=== PATIENT | female | born 1980 | race Hispanic/Latino ===

== ENCOUNTER 2018-09-08 13:39 | Inpatient (IN) | payer SELFPAY ==
[2018-09-08] MEDS ORDERED: ONDANSETRON INJ 4 MG/2 ML VIAL IV ONE ×2 (14:02→14:56)
[2018-09-08] MEDS ORDERED: MORPHINE SULFATE INJ 10 MG/ML VIAL IV ONE (14:55)
[2018-09-08] MEDS ORDERED: SODIUM CHLORIDE 0.9% 1000ML 1,000 ML IVS ONE (15:11)
[2018-09-08] MEDS ORDERED: INSULIN, REG.(HUMAN) 250 UNITS in SODIUM CHL 0.9% 250ML (AVIVA) 247.5 ML IVPB ONE ×2 (16:16)
--- NOTE | 2018-09-08 16:17 | CT ---
EXAM DESCRIPTION: Abdomen w/Contrast CLINICAL HISTORY: pain, vomitus COMPARISON: None Available TECHNIQUE: CT of the abdomen and Pelvis was performed with IV contrast. This exam was performed according to our departmental dose-optimization program, which includes automated exposure control, adjustment of the mA and/or kV according to patient size and/or use of iterative reconstruction technique. FINDINGS: The dome of the liver and most superior portion of the spleen are excluded from this exam. With this in mind, no pneumoperitoneum, adenopathy or ascites is seen. No calcified gallstones. Visualized portions of the liver and spleen are unremarkable. The pancreas, adrenals and kidneys are unremarkable. No hiatal hernia or gastric wall thickening. No dilated small bowel loops or mesenteric inflammation. No bladder calcification. Uterus and ovaries are unremarkable for patient's age. Moderate amount stool and gas in the colon without colonic wall thickening or pericolonic inflammation. Normal appendix. The bones are unremarkable. IMPRESSION: Negative exam. No apparent abnormality in the abdomen or pelvis to explain patient's symptoms. Electronically signed by: Narendra Rendon MD 09/08/2018 4:16 PM [facility]
[2018-09-08] MEDS ORDERED: INSULIN, REG.(HUMAN) 100 U/ML VIAL ONE (16:21)
[2018-09-08] MEDS ORDERED: SODIUM CHL 0.9% 250ML (AVIVA) 250 ML IVPB ONE (16:21)
[2018-09-08] MEDS ORDERED: SODIUM CHLORIDE 0.9% 1000ML 1,000 ML IVS PRN (21:26)
[2018-09-08] MEDS ORDERED: POTASSIUM CHLORIDE 20 MEQ TAB PO ONE (21:38)
--- NOTE | 2018-09-08 22:11 | ED.PDOC ---
History of Present Illness - General Chief Complaint: Abdominal Pain Stated Complaint: N/V/D ABD PAIN Time Seen by Provider: 09/08/18 14:01 Source: patient, other - friend Exam Limitations: language barrier - History of Present Illness Initial Comments: Patient presents with N/V and abdominal pain since yesterday at 8 pm. She denies diarrhea. The abdominal pain is infrasternal, sharp, non-radiating, worse with movement, better with rest, denies previous episodes. The patient denies history of diabetes but 3 years ago she was taking "pills" three times per day and she is not sure what for. No other complaints. Timing/Duration: 24 hours Severity: moderate Improving Factors: rest Worsening Factors: movement Associated Symptoms: nausea/vomiting Allergies/Adverse Reactions: Allergies NO KNOWN ALLERGY Allergy (Unverified 09/08/18 13:46) Home Medications: Ambulatory Orders NK 09/08/18 Review of Systems - Review of Systems Constitutional: States: no symptoms reported EENTM: States: no symptoms reported Respiratory: States: no symptoms reported Cardiology: States: no symptoms reported Gastrointestinal/Abdominal: States: see HPI Genitourinary: States: no symptoms reported Musculoskeletal: States: no symptoms reported Skin: States: no symptoms reported Neurological: States: no symptoms reported Endocrine: States: no symptoms reported Hematologic/Lymphatic: States: no symptoms reported Past Medical History (General) - Patient Medical History Hx Asthma: No Hx of COPD: No Hx Cardiac Disorders: No Hx Congestive Heart Failure: No Hx Hypertension: No Hx Diabetes: No Surgical History: no surgical history - Vaccination History Hx Tetanus, Diphtheria Vaccination: No Hx Influenza Vaccination: No Hx Pneumococcal Vaccination: No Immunizations Up to Date: No - Social History Hx Tobacco Use: No Hx Alcohol Use: No Hx Substance Use: No Hx Substance Use Treatment: No Hx Depression: No - Female History Patient is a Female of Child Bearing Age (10 -59 yrs old): Yes Family Medical History - Family History Mother Family History: Unknown Physical Exam - Physical Exam General Appearance: Alert Eye Exam: bilateral normal Ears, Nose, Throat: normal ENT inspection Neck: non-tender, full range of motion, supple Respiratory: lungs clear, normal breath sounds Cardiovascular/Chest: normal peripheral pulses, regular rate, rhythm, no edema Gastrointestinal/Abdominal: normal bowel sounds, other - TTP at the LUQ and infrasternal region. Negative Rovsing's sign. No guarding nor rebound tenderness. Back Exam: normal inspection, no CVA tenderness Extremity: normal range of motion, non-tender, normal inspection Neurologic: amortization clerk II-XII nml as tested, no motor/sensory deficits, alert, normal mood/affect, oriented x 3 Skin Exam: normal color Lymphatic: no adenopathy Progress - Progress Progress: 09/08/18 22:12 Laboratory Tests 09/08/18 09/08/18 09/08/18 14:07 14:07 14:15 WBC 8.3 RBC 4.84 Hgb 14.1 Hct 42.3 MCV 87.4 MCH 29.2 MCHC 33.4 RDW 13.1 Plt Count 224 MPV 8.7 Absolute Neuts (auto) 7.00 H Absolute Lymphs (auto) 1.00 Absolute Monos (auto) 0.20 Absolute Eos (auto) 0.00 Absolute Basos (auto) 0.00 Neutrophils % 85.0 H Lymphocytes % 12.6 L Monocytes % 1.9 L Eosinophils % 0.2 L Basophils % 0.3 pCO2 pO2 HCO3 ABG pH ABG O2 Saturation ABG Base Excess ABG Deoxyhemoglobin Oxyhemoglobin % Carboxyhemoglobin % Methemoglobin % Sat Calc Total Hemoglobin Sodium 137 Potassium 3.8 Chloride 97 L Carbon Dioxide 23 Anion Gap 20.8 H BUN 26 H Creatinine 0.58 L BUN/Creatinine Ratio 44.8 H POC Glucose Random Glucose 311 H Hemoglobin A1c Serum Osmolality 290.4 Calcium 9.8 Total Bilirubin 0.7 AST 21 ALT 19 Alkaline Phosphatase 102 Serum Total Protein 9.2 H Albumin 4.1 Globulin 5.1 H Albumin/Globulin Ratio 0.8 L Lipase 29 Urine Color Urine Appearance Urine pH Ur Specific Elmo Urine Protein Urine Glucose (UA) Urine Ketones Urine Blood Urine Nitrite Urine Bilirubin Urine Urobilinogen Ur Leukocyte Esterase Urine RBC Urine WBC Ur Epithelial Cells Urine Bacteria Urine HCG, Qual Negative 09/08/18 09/08/18 09/08/18 14:16 15:11 16:30 WBC RBC Hgb Hct MCV MCH MCHC RDW Plt Count MPV Absolute Neuts (auto) Absolute Lymphs (auto) Absolute Monos (auto) Absolute Eos (auto) Absolute Basos (auto) Neutrophils % Lymphocytes % Monocytes % Eosinophils % Basophils % pCO2 36 pO2 105 HCO3 20.7 ABG pH 7.380 ABG O2 Saturation 99.3 H ABG Base Excess -3.3 ABG Deoxyhemoglobin 0.7 Oxyhemoglobin % 97.4 Carboxyhemoglobin % 0.3 L Methemoglobin % Sat 1.6 H Calc Total Hemoglobin 12.5 Sodium Potassium Chloride Carbon Dioxide Anion Gap BUN Creatinine BUN/Creatinine Ratio POC Glucose Random Glucose Hemoglobin A1c 12.6 H Serum Osmolality Calcium Total Bilirubin AST ALT Alkaline Phosphatase Serum Total Protein Albumin Globulin Albumin/Globulin Ratio Lipase Urine Color Yellow Urine Appearance Clear Urine pH 5.5 Ur Specific Elmo 1.025 Urine Protein 100 H Urine Glucose (UA) 500 H Urine Ketones >=160 Urine Blood Trace-lysed H Urine Nitrite Negative Urine Bilirubin Negative Urine Urobilinogen 0.2 Ur Leukocyte Esterase Negative Urine RBC 0-1 Urine WBC 0 Ur Epithelial Cells 1-3 Urine Bacteria Rare Urine HCG, Qual 09/08/18 09/08/18 09/08/18 17:33 18:36 18:51 WBC RBC Hgb Hct MCV MCH MCHC RDW Plt Count MPV Absolute Neuts (auto) Absolute Lymphs (auto) Absolute Monos (auto) Absolute Eos (auto) Absolute Basos (auto) Neutrophils % Lymphocytes % Monocytes % Eosinophils % Basophils % pCO2 pO2 HCO3 ABG pH ABG O2 Saturation ABG Base Excess ABG Deoxyhemoglobin Oxyhemoglobin % Carboxyhemoglobin % Methemoglobin % Sat Calc Total Hemoglobin Sodium Potassium Chloride Carbon Dioxide Anion Gap BUN Creatinine BUN/Creatinine Ratio POC Glucose 233 H 256 H Random Glucose Cancelled Hemoglobin A1c Serum Osmolality Calcium Total Bilirubin AST ALT Alkaline Phosphatase Serum Total Protein Albumin Globulin Albumin/Globulin Ratio Lipase Urine Color Urine Appearance Urine pH Ur Specific Elmo Urine Protein Urine Glucose (UA) Urine Ketones Urine Blood Urine Nitrite Urine Bilirubin Urine Urobilinogen Ur Leukocyte Esterase Urine RBC Urine WBC Ur Epithelial Cells Urine Bacteria Urine HCG, Qual 09/08/18 09/08/18 09/08/18 20:20 21:08 21:37 WBC RBC Hgb Hct MCV MCH MCHC RDW Plt Count MPV Absolute Neuts (auto) Absolute Lymphs (auto) Absolute Monos (auto) Absolute Eos (auto) Absolute Basos (auto) Neutrophils % Lymphocytes % Monocytes % Eosinophils % Basophils % pCO2 pO2 HCO3 ABG pH ABG O2 Saturation ABG Base Excess ABG Deoxyhemoglobin Oxyhemoglobin % Carboxyhemoglobin % Methemoglobin % Sat Calc Total Hemoglobin Sodium 139 Potassium 3.1 L Chloride 103 Carbon Dioxide 23 Anion Gap 16.1 BUN 26 H Creatinine 0.49 L BUN/Creatinine Ratio 53.1 H POC Glucose 217 H 189 H Random Glucose 200 H D Hemoglobin A1c Serum Osmolality 287.9 Calcium 9.6 Total Bilirubin AST ALT Alkaline Phosphatase Serum Total Protein Albumin Globulin Albumin/Globulin Ratio Lipase Urine Color Urine Appearance Urine pH Ur Specific Elmo Urine Protein Urine Glucose (UA) Urine Ketones Urine Blood Urine Nitrite Urine Bilirubin Urine Urobilinogen Ur Leukocyte Esterase Urine RBC Urine WBC Ur Epithelial Cells Urine Bacteria Urine HCG, Qual Presenting glucose 311. HbA1c 12.6. CT ab/pelvis negative. Anion gap 20.8. Potassium 3.8. ABG showed pH of 7.38. Patient started on Regular human insulin at 5 units per hour since she was insulin naive. Blood sugar decreased to 233. One hour later it was 256 so the insulin was increased to 10 units per hour. Sugar went to 189 and anion gap corrected to 16.1. Insulin stopped and patient started on D5 1/2 NS with 20 meq KCl per liter at 150 ml/hr and given potassium chlorided 20 meq po x one. Admitted to the floor. Departure - Departure Clinical Impression: Hyperglycemia Disposition: Admit Patient Condition: Good Departure Forms: ED Discharge - Pt. Copy, Patient Portal Self Enrollment Diet: diabetic diet Activity: increase activity as tolerated Home Medications: Ambulatory Orders NK 09/08/18
[2018-09-08] MEDS: KCL 20MEQ/D5 1/2NS 1,000 ML IVS PRN (22:18)
--- NOTE | 2018-09-08 23:23 | HP ---
SUPERVISING PHYSICIAN: Edwin Padron MD CHIEF COMPLAINT: Nausea, vomiting and epigastric pain. HISTORY OF PRESENT ILLNESS: Ms. Almanza is a [id number], female that presented to the Emergency Department last night with nausea, vomiting and some epigastric pain. She noted it started about 8 o'clock prior to presenting to the Emergency Room. She denied any diarrhea. She notes that the abdominal pain is more after she eats and is in the middle of the epigastric region. She does have a history of diabetes and three years previously was treated at [facility] and was on medication that she took three times a day. She is not sure what medication it was. Due to the side effect of nausea, she stopped taking the medication. Her labs initially in the Emergency Room showed her blood sugar was elevated at 311 and BUN was 26, creatinine 0.5. Liver functions were all within normal limits as well as lipase. Blood gas analysis was within normal limits with no acidosis. Oxygen saturation was 99% on room air. White count was normal with just a mild left shift. Hemoglobin A1c was also completed in the Emergency Room and showed it was elevated at 12.6. Dr. Wahl felt the patient had poorly controlled diabetes and started the patient on insulin drip to help control her blood sugar below 200. Once the patient's blood sugar was below 200, he requested the patient be admitted for continuation of treatment of hyperglycemia and diabetic education. PAST MEDICAL HISTORY: 1. Diabetes mellitus, not currently on any therapy. PAST SURGICAL HISTORY: 1. D&C. CURRENT MEDICATIONS: No reported chronic medications, [id number] supplements or remedies. ALLERGIES: NO KNOWN DRUG ALLERGIES. FAMILY HISTORY: Her father is at age 75 secondary to brain hemorrhage. He also had pulmonary hypertension and diabetes. Her mother is still alive and has no medical history. She has two siblings who have no history of medical problems. She has no children. SOCIAL HISTORY: The patient is a homemaker. She lives in [place], [place]. She is . She has no children. She has never drank alcohol and never smoked tobacco. She does not use any illicit drugs. REVIEW OF SYSTEMS: CONSTITUTIONAL: Denies any fevers, chills, or unintentional weight loss. HEENT: Denies headaches, sore throat, earaches, nasal congestion. RESPIRATORY: Negative for shortness of breath, wheezing or coughing. CARDIOVASCULAR: Denies chest pain, palpitations, peripheral edema or syncopal episodes. GASTROINTESTINAL: As noted in history of present illness with epigastric discomfort with some nausea, vomiting and some diarrhea. She denies any constipation. GENITOURINARY: Positive for polyuria and nocturia. Negative for hematuria or dysuria. SKIN: Negative for rashes, lesions or sores. NEUROLOGIC: Negative for syncopal episodes, ataxia, seizure, paresthesias or other focal neurologic deficits. ENDOCRINE: Positive for polyuria, nocturia, polydipsia. Negative for unintentional weight loss. HEMATOLOGICAL: Denies easy bruising or unexplained bleeding. PHYSICAL EXAMINATION: VITAL SIGNS: On admission to the Emergency Room, temperature 98.1. Pulse 95. Blood pressure 158/86. Respirations 22. Oximetry 100% on room air. Admission weight 94.7 kg. GENERAL: The patient appears to be older than her stated age. She does not appear to be in any acute distress. She does appear tired, but is alert. HEENT: Tympanic membranes clear bilaterally. Oropharynx is pink with dry mucous membranes, no lesions or rashes. NECK: Supple, nontender with full range of motion. No jugular venous distention noted. RESPIRATORY: Lungs clear to auscultation bilaterally without any rhonchi, wheezes, or rales. CARDIOVASCULAR: Regular rate and rhythm without any appreciable murmurs, gallops, or rubs. ABDOMEN: Positive bowel sounds. Tender to palpation at the epigastric and inferior sternal region. No guarding or rebound tenderness. No point tenderness. No peritoneal tenderness. BACK: Normal to inspection with no CVA tenderness. EXTREMITIES: There is no cyanosis, clubbing or edema. She moves all extremities ad jemima. NEUROLOGIC: The patient is alert and oriented times three. Cranial nerves II- XII are grossly intact. SKIN: Normal color and dry. LABORATORY: CBC on admission showed white count 8,300 with hemoglobin 14.1, hematocrit 14.3, platelet count 22,400. Differential showed a slight left shift. Blood gas analysis showed pH 7.38, pCO2 36, pO2 105, bicarb 20.7, base excess 3.3, saturation 99% on room air. Chemistries showed normal sodium and potassium. BUN elevated at 26, creatinine 0.58. Initial glucose 311. Liver functions within normal limits. Lipase 29. Urinalysis showed urine HCG negative, urine protein 100, glucose 500, ketones great than 160, trace lysed blood. Microscopic was within normal limits. RADIOLOGY: CT of the abdomen with contrast showed negative exam with no apparent abnormalities in the abdomen or pelvis to explain the patient's symptoms. Please see that report for full details. ASSESSMENT: 1. Diabetes, type 2, not treated, with hyperglycemia without any evidence of serum ketones or acidosis. Hemoglobin A1c is 12.6. 2. Hypertension, not previously on medications. 3. Renal insufficiency with some prerenal azotemia due to uncontrolled blood sugars and dehydration. 4. Moderate dehydration secondary to poorly controlled diabetes. PLAN: The patient is going to be admitted to the hospital for further treatment and stabilization of her blood sugar. The insulin drip was discontinued in the Emergency Room before admitting. We will utilize oral metformin 500 mg twice daily and put her on a sliding scale per protocol. I will start her on some lisinopril 5 mg. Given that she continues to show dehydration, we will give her another liter of fluids and will continue with IV fluids fairly aggressively with half normal saline with 20 of potassium at 150. We will repeat labs in the morning. We will anticipate length of stay to be one to two days with anticipation of the patient probably discharging tomorrow if she is fairly stable. The patient is [id number] which makes it very difficult to provide education that she needs, but she certainly needs to be given good education regarding treatment of her diabetes. She has been followed up in the clinic at [facility], but well over three to four years ago. We will anticipate discharging tomorrow on metformin and lisinopril. Until then, we will continue to monitor and treat as needed. [facility][id number] [facility]
[2018-09-09] MEDS ORDERED: SODIUM CHLORIDE 0.9% (FLUSH) 10 ML SYG IV PRN (00:16)
[2018-09-09] MEDS ORDERED: DEXTROSE 50% 25 GM/50 ML SYG IV PRN (00:16)
[2018-09-09] MEDS ORDERED: ONDANSETRON INJ 4 MG/2 ML VIAL IV PRN (00:16)
[2018-09-09] MEDS ORDERED: GLUCAGON INJ 1 MG VIAL SUBCU PRN (00:16)
[2018-09-09] MEDS ORDERED: MORPHINE SULFATE INJ 10 MG/ML VIAL IV PRN (00:16)
[2018-09-09] MEDS ORDERED: METOCLOPRAMIDE HCL INJ 10 MG/2 ML VIAL IV ONE (00:22)
[2018-09-09] MEDS ORDERED: IV SET AND CAP CHANGE INJ INJ SCH (00:30)
[2018-09-09] MEDS ORDERED: PROMETHAZINE HCL INJ 25 MG in SODIUM CHLORIDE 0.9% 50ML 50 ML IVPB ONE (00:45)
[2018-09-09] MEDS ORDERED: SODIUM CHLORIDE 0.9% 100ML 0 ML IVPB ONE (01:12)
[2018-09-09] MEDS ORDERED: PROMETHAZINE HCL INJ 25 MG/ML VIAL ONE (01:12)
[2018-09-09] MEDS ORDERED: SODIUM CHLORIDE 0.9% 50ML 50 ML ONE (01:14)
[2018-09-09] MEDS: KCL 20MEQ/D5 1/2NS 1,000 ML IVS PRN (05:38)
[2018-09-09] MEDS: INSULIN LISPRO 100 UNITS/ML PEN SUBCU SCH ×4 (07:34→20:55)
[2018-09-09] MEDS: METOCLOPRAMIDE HCL 5 MG TAB PO SCH ×4 (07:46→20:55)
[2018-09-09] MEDS ORDERED: SODIUM CHLORIDE 0.9% 1000ML 1,000 ML IVS ONE (07:52)
[2018-09-09] MEDS ORDERED: ALUM & MAG HYDROX-SIMETHICONE 30 ML, LIDOCAINE VISCOUS 2% 15 ML PO ONE ×2 (11:20)
[2018-09-09] MEDS ORDERED: ALUM & MAG HYDROX-SIMETHICONE 30 ML UD ONE (11:56)
[2018-09-09] MEDS ORDERED: LIDOCAINE HCL 2% (MOUTH-THROAT) 15 ML UD ONE (12:01)
[2018-09-09] MEDS: BISACODYL TAB 5 MG TAB PO SCH (12:03)
[2018-09-09] MEDS: LISINOPRIL 5 MG TAB PO SCH (12:03)
[2018-09-09] MEDS: PANTOPRAZOLE SODIUM IV 40 MG VIAL IV SCH (12:14)
[2018-09-09] MEDS: metFORMIN HCL 500 MG TAB PO SCH (17:39)
[2018-09-09] MEDS: KCL 20MEQ/0.45% NS 1,000 ML IVS PRN (18:53)
--- NOTE | 2018-09-09 22:54 | PN ---
DATE: 09/09/18 SUPERVISING PHYSICIAN: Kang Padron M.D. SUBJECTIVE: The patient notes that she is feeling a little bit better this morning after some fluids. She is denying any nausea or vomiting at this point and able to take a diet. Blood sugars still remain elevated but again she is improving with fluids. OBJECTIVE: VITAL SIGNS: Temperature 98.5, pulse 80, blood pressure 113/66, respirations 16, satting 97% on room air. I's and O's show a positive balance of 1250 with 2250 in, 1000 out. Weight is 94.7 kg which is actually down from admission at 97.9 kg. GENERAL: The patient continues to look tired but she is alert and in no distress. CHEST: Lung sounds remain clear to auscultation. HEART: Regular rate and rhythm. ABDOMEN: Obese but soft. Positive bowel sounds with some continued mild tenderness noted on palpation in the epigastric region, otherwise no rebound tenderness or guarding. No peritoneal signs. EXTREMITIES: Without any edema. NEUROLOGIC: She is alert and oriented times three. LABORATORY: Blood sugars remain elevate anywhere from 189 to 296. Chemistries this morning show electrolytes to be within normal limits with potassium 3.6, BUN remains elevated at 27, creatinine 0.47, magnesium 2.0. MICROBIOLOGY: No specimens submitted. RADIOLOGY: No additional radiographic studies. ASSESSMENT: 1. Diabetes, type 2, not on any current therapy with hyperglycemia but no evidence of ketones or acidosis with recent Hemoglobin A1c showing to be at 12.6. 2. Hypertension, not previously on medications. 3. Renal insufficiency due to prerenal azotemia from uncontrolled blood sugars and dehydration. 4. Moderate dehydration secondary to poorly controlled diabetes improving with fluids. PLAN: Will continue with fluids. I will go ahead and give her another liter of normal saline fluids this morning. Will continue with maintenance fluids at 150 half normal saline with 20 of potassium. Will start her on some Metformin 500 mg b.i.d. I am going ahead and start her on Lisinopril 5 mg daily. Anticipate the patient hopefully will be able to discharge tomorrow. Again, she will need some followup on education in regards to diabetic management which will be a little bit difficult due to the patient is only Emirati speaking. She will need followup with [facility] which she has been over there within the last 3 to 4 years. Again, I started her on Metformin and Lisinopril which she will need prescriptions for. I told her that she needs to take a log of her blood sugars to followup with Dr. Sky at which time she can further manage her diabetes. Until she continues with outpatient management will continue to monitor and treat as needed. #[id number] [facility]
[2018-09-10] MEDS: KCL 20MEQ/0.45% NS 1,000 ML IVS PRN (01:42)
[2018-09-10] MEDS: METOCLOPRAMIDE HCL 5 MG TAB PO SCH ×3 (06:03→17:35)
[2018-09-10] MEDS: PANTOPRAZOLE SODIUM IV 40 MG VIAL IV SCH (06:03)
[2018-09-10] MEDS: INSULIN LISPRO 100 UNITS/ML PEN SUBCU SCH ×3 (08:21→17:33)
[2018-09-10] MEDS: metFORMIN HCL 500 MG TAB PO SCH (08:26)
[2018-09-10] MEDS ORDERED: ENOXAPARIN SODIUM 40 MG/0.4 ML SYG SUBCU SCH (09:00)
[2018-09-10] MEDS: BISACODYL TAB 5 MG TAB PO SCH (09:50)
[2018-09-10] MEDS: LISINOPRIL 5 MG TAB PO SCH (09:53)
[2018-09-10] MEDS ORDERED: metFORMIN HCL 500 MG TAB PO SCH (12:22)
[2018-09-10 13:22] VITALS: BP 120/74; TEMP 98.2; O2SAT 98
--- NOTE | 2018-09-11 08:04 | DS ---
SUPERVISING PHYSICIAN: Edwin Padron MD DISCHARGE DIAGNOSIS: 1. Diabetes, type 2, with no present treatment. She had hyperglycemia on admission to the Emergency Room without any evidence of serum ketones or acidosis. Her hemoglobin A1c was 12.6. 2. Hypertension, not previously on medications. 3. Renal insufficiency with some prerenal azotemia due to uncontrolled blood sugars and dehydration. 4. Moderate dehydration secondary to poorly controlled diabetes. HISTORY OF PRESENT ILLNESS: This is a 38-year-old female patient who is only speaking. She came to the Emergency Room last night with nausea, vomiting and some epigastric pain. It had started the previous evening before admission at 8 PM. She denied any diarrhea. The abdominal pain is more after she eats and is in the epigastric area. She has a history of diabetes mellitus, type 2, and had been treated at [facility] approximately three years ago and was on an unknown medication that she took three times a day. She was not sure what medication it was. She had some nausea with it, so she stopped taking the medication. Her labs in the Emergency Room showed her blood sugar was elevated at 311 and BUN was 26, creatinine 0.5. Liver functions were within normal limits as well as lipase within normal limits. Arterial blood gas analysis was within normal limits with no acidosis. Oxygen saturation was 99% on room air. White count was normal with a mild left shift on differential. Hemoglobin A1c was also was 12.6. Initially, the patient was started on an insulin drip to help control her blood sugar until below 200. She was also given fluids. After her blood sugar dropped below 200, he requested admission to the hospital. HOSPITAL COURSE: The patient was given additional fluids and stabilized. She was put on blood sugar checks a.c. and h.s. with sliding scale NovoLog insulin coverage. She was initially started on oral metformin at 500 mg twice a day. Today, her evening dose was increased to 1000 mg b.i.d. She was not started on any long-acting insulin as she is a self-pay and after speaking with the patient, she said she could not afford long-acting insulin at this time. Today, her CBC is basically within normal limits with blood sugars that have run between 205 and 296. Her electrolytes are within normal limits. BUN is slightly elevated at 20 and creatinine is 0.46. At her request, she is being discharged home with close followup at [facility] with Dr. Sky. DISCHARGE PLAN: The patient will be discharged home in stable condition. She will continue on 5 mg of lisinopril daily as well as Glucophage XR 1000 mg b.i.d. She was requested to check her fasting blood sugars in the morning and record them and take them to her hospital followup appointment with Dr. Sky at [facility]. At that time, it may be beneficial to consult [facility] as they may be able to get her some assistance with medications as well as her health care. She does have a glucometer and it was recommended she get a [email or web address] glucometer as they are fairly inexpensive and the glucose strips are fairly inexpensive also. She has a followup appointment with Dr. Sky on 09/16/18 at 9:30 AM. Hopefully she can be followed by Ely Herman, [facility], after her appointment with Dr. Sky. She is to return to the hospital or followup with Dr. Sky's office for any further problems or complications. She did have a sterilizer machine operator for her discharge instructions that include increasing her activity as tolerated as well as a diabetic diet. She would also benefit from some diabetic education at some point. DISCHARGE MEDICATIONS: 1. Lisinopril. 2. Metformin XR. [facility][id number]
== END 2018-09-10 18:15 | disposition home or self-care (01) | DRG 639 ==
LOC: ER 13:39 → MS 23:22 → OBSVTOIN 23:22
PROVIDERS: ADMIT Nurse Practitioner Family; ATTEND Nurse Practitioner Acute Care
DX: E11.65 Type 2 diabetes mellitus with hyperglycemia (principal); I10 Essential (primary) hypertension; E86.0 Dehydration; N28.89 Other specified disorders of kidney and ureter

== ENCOUNTER 2018-09-16 10:09 | Emergency (ER) | payer SELFPAY ==
[2018-09-16 10:31] VITALS: TEMP 98.5
--- NOTE | 2018-09-16 10:37 | ED.PDOC ---
History of Present Illness - General Chief Complaint: Abdominal Pain Stated Complaint: vomiting,epigastric pain Time Seen by Provider: 09/16/18 10:37 Exam Limitations: no limitations, other - friend interpreted - History of Present Illness Initial Comments: Priscilla Almanza 38 y/o female came to ER with nausea /vomiting and was recently diagnosed with DM 2 3 years ago and HTN but diabetic medications stopped by Md since blood sugar under control and was noted to be hyperglycemic one week ago in ER .Hospitalized for 3 days for ivf hydration for N/V and was sent home got better but N/V recurred. Timing/Duration: intermittent Severity: moderate Improving Factors: nothing Worsening Factors: eating Associated Symptoms: loss of appetite, nausea/vomiting Allergies/Adverse Reactions: Allergies NO KNOWN ALLERGY Allergy (Verified 09/09/18 00:07) Home Medications: Ambulatory Orders Lisinopril [Prinivil] 5 mg PO DAILY #30 tab 09/10/18 metFORMIN XR [Glucophage XR] 1,000 mg PO BID #120 tab 09/10/18 Metoclopramide HCl 5 mg PO TID #30 tab 09/16/18 Ranitidine HCl 150 mg PO BID #60 tab 09/16/18 Sulfa/Trimeth 800/160 (Ds) Tab [Bactrim DS] 1 tablet PO DAILY #14 tablet 09/16/18 Review of Systems - Review of Systems Constitutional: States: no symptoms reported EENTM: States: no symptoms reported Respiratory: States: no symptoms reported Cardiology: States: no symptoms reported Gastrointestinal/Abdominal: States: see HPI Genitourinary: States: no symptoms reported Musculoskeletal: States: no symptoms reported Skin: States: no symptoms reported Neurological: States: no symptoms reported Endocrine: States: no symptoms reported Hematologic/Lymphatic: States: no symptoms reported Past Medical History (General) - Patient Medical History Hx Seizures: No Hx Stroke: No Hx Asthma: No Hx of COPD: No Hx Cardiac Disorders: No Hx Congestive Heart Failure: No Hx Pacemaker: No Hx Hypertension: No Hx Diabetes: Yes Hx MRSA: No Surgical History: no surgical history - Vaccination History Hx Tetanus, Diphtheria Vaccination: No Hx Influenza Vaccination: No Hx Pneumococcal Vaccination: No - Social History Hx Tobacco Use: No Hx Alcohol Use: No Hx Substance Use: No Hx Substance Use Treatment: No Hx Depression: No Hx Physical Abuse: No Hx Emotional Abuse: No - Female History Patient is a Female of Child Bearing Age (10 -59 yrs old): No Family Medical History - Family History Mother Family History: No Known Living Status: Still Living Father Living Status: Hx Family Asthma: No Hx Family Congestive Heart Failure: No Hx Family Hypertension: No Hx Family Stroke: Yes - also cause of Hx Cardiac Disease: No Hx Family Diabetes: No Hx Family Cancer: No Physical Exam - Physical Exam General Appearance: Alert, Comfortable, No apparent distress Eye Exam: bilateral normal Ears, Nose, Throat: hearing grossly normal, normal ENT inspection, normal pharynx Neck: non-tender, full range of motion, supple, normal inspection Respiratory: chest non-tender, lungs clear, normal breath sounds, no respiratory distress Cardiovascular/Chest: normal peripheral pulses, regular rate, rhythm, no murmur Gastrointestinal/Abdominal: normal bowel sounds, non tender, soft, no organomegaly Back Exam: normal inspection, no CVA tenderness, no vertebral tenderness Extremity: no pedal edema, no calf tenderness Neurologic: alert, oriented x 3 Skin Exam: normal color, warm/dry Lymphatic: no adenopathy Progress - Progress Progress: 09/16/18 12:55 Vital Signs - 8 hr 09/16/18 09/16/18 10:27 11:47 Temperature 98.5 F Pulse Rate [ 91 H 76 Left Brachial] Respiratory 20 16 Rate Blood Pressure 123/72 127/79 [Left Arm] O2 Sat by Pulse 99 100 Oximetry - Results/Orders Results/Orders: 09/16/18 11:35 URINE CULTURE W/COLONY COUNT Stat Laboratory Results - last 24 hr 09/16/18 09/16/18 09/16/18 10:50 10:50 11:35 WBC 8.6 RBC 4.83 Hgb 14.2 Hct 42.2 MCV 87.4 MCH 29.3 MCHC 33.6 RDW 13.4 Plt Count 221 MPV 8.8 Absolute Neuts (auto) 5.90 Absolute Lymphs (auto) 2.00 Absolute Monos (auto) 0.60 Absolute Eos (auto) 0.10 Absolute Basos (auto) 0.10 Neutrophils % 68.2 Lymphocytes % 23.6 Monocytes % 6.7 Eosinophils % 0.8 L Basophils % 0.7 PT 10.4 INR 1.04 PTT (SP) 21.8 Sodium 135 Potassium 3.8 Chloride 96 L Carbon Dioxide 27 Anion Gap 15.8 BUN 21 H Creatinine 0.52 L BUN/Creatinine Ratio 40.4 H POC Glucose Random Glucose 280 H Serum Osmolality 283.2 Calcium 9.7 Magnesium 1.7 L Total Bilirubin 0.6 Direct Bilirubin < 0.1 Indirect Bilirubin 0.5 AST 20 ALT 20 Alkaline Phosphatase 79 Creatine Kinase 29 CK-MB (CK-2) 0.4 CK-MB (CK-2) % Not Reportable Troponin I < 0.02 Serum Total Protein 8.8 H Albumin 4.1 Lipase 35 Urine Color Yellow Urine Appearance Cloudy Urine pH 7.0 Ur Specific [place] 1.020 Urine Protein 100 H Urine Glucose (UA) 500 H Urine Ketones 40 H Urine Blood Trace-intact H Urine Nitrite Negative Urine Bilirubin Small H Urine Urobilinogen 0.2 Ur Leukocyte Esterase Small H Urine RBC 5-10 H Urine WBC 20-30 H Ur Epithelial Cells 3-5 Urine Bacteria 4+ H Urine HCG, Qual Negative 09/16/18 14:39 WBC RBC Hgb Hct MCV MCH MCHC RDW Plt Count MPV Absolute Neuts (auto) Absolute Lymphs (auto) Absolute Monos (auto) Absolute Eos (auto) Absolute Basos (auto) Neutrophils % Lymphocytes % Monocytes % Eosinophils % Basophils % PT INR PTT (SP) Sodium Potassium Chloride Carbon Dioxide Anion Gap BUN Creatinine BUN/Creatinine Ratio POC Glucose 187 H Random Glucose Serum Osmolality Calcium Magnesium Total Bilirubin Direct Bilirubin Indirect Bilirubin AST ALT Alkaline Phosphatase Creatine Kinase CK-MB (CK-2) CK-MB (CK-2) % Troponin I Serum Total Protein Albumin Lipase Urine Color Urine Appearance Urine pH Ur Specific [place] Urine Protein Urine Glucose (UA) Urine Ketones Urine Blood Urine Nitrite Urine Bilirubin Urine Urobilinogen Ur Leukocyte Esterase Urine RBC Urine WBC Ur Epithelial Cells Urine Bacteria Urine HCG, Qual Discuss all test result in the presence of her friend who interpreted for me since patient speaks on Sami. - EKG/XRAY/CT Xray Comments: GB Sono-negative Departure - Departure Clinical Impression: Diabetes type 2, uncontrolled Qualifiers: Glycemic state: with hyperglycemia Qualified Code(s): E11.65 - Type 2 diabetes mellitus with hyperglycemia Nausea & vomiting Qualifiers: Vomiting type: unspecified Vomiting Intractability: non-intractable Qualified Code(s): R11.2 - Nausea with vomiting, unspecified Time of Disposition: 16:56 Disposition: Discharge to Home or Self Care Condition: Fair Departure Forms: ED Discharge - Pt. Copy, Patient Portal Self Enrollment Instructions: Gastroparesis (Delayed Gastric Emptying) (DC), Gastroparesis (Delayed Gastric Emptying), Diabetes and Diet, Diabetes Exchange Diet, Diabetes Diet Diet: bland diet, other - AVOID GREASY /SPICY FOODS Referrals: Homar Sky MD [Primary Care Provider] - 1-2 Weeks Prescriptions: Metoclopramide HCl 5 mg PO TID #30 tab Ranitidine HCl 150 mg PO BID #60 tab Sulfa/Trimeth 800/160 (Ds) Tab [Bactrim DS] 1 tablet PO DAILY #14 tablet Home Medications: Ambulatory Orders Lisinopril [Prinivil] 5 mg PO DAILY #30 tab 09/10/18 metFORMIN XR [Glucophage XR] 1,000 mg PO BID #120 tab 09/10/18 Metoclopramide HCl 5 mg PO TID #30 tab 09/16/18 Ranitidine HCl 150 mg PO BID #60 tab 09/16/18 Sulfa/Trimeth 800/160 (Ds) Tab [Bactrim DS] 1 tablet PO DAILY #14 tablet 09/16/18 Additional Instructions: Follow up with primary Md for Re-check 18 September 2018;Return to ER as needed;Continue with all home medications
[2018-09-16] MEDS ORDERED: LACTATED RINGERS 1,000 ML IVS ONE (10:38)
[2018-09-16] MEDS ORDERED: PROCHLORPERAZINE INJ 10 MG/2 ML VIAL IV ONE (10:38)
[2018-09-16] MEDS ORDERED: PANTOPRAZOLE INJECTION 80 MG in SODIUM CHLORIDE 0.9% 100ML 80 ML IVPB ONE (10:56)
[2018-09-16] MEDS ORDERED: METOCLOPRAMIDE HCL INJ 10 MG/2 ML VIAL IV ONE (10:56)
[2018-09-16] MEDS ORDERED: PANTOPRAZOLE SODIUM IV 40 MG VIAL ONE (11:03)
[2018-09-16] MEDS ORDERED: SODIUM CHLORIDE 0.9% 100ML 100 ML IVPB ONE (11:03)
--- NOTE | 2018-09-16 11:19 | RAD ---
EXAM DESCRIPTION: Chest,1 View CLINICAL HISTORY: pain FINDINGS/ IMPRESSION: Normal cardiomediastinal silhouette. No edema filtration or effusion No pneumothorax. No acute bony abnormality Electronically signed by: Chava Donnelly MD 09/16/2018 11:18 AM [facility]
--- NOTE | 2018-09-16 11:20 | RAD ---
EXAM DESCRIPTION: Abdomen, 2 radiographs CLINICAL HISTORY: Abdomen pain FINDINGS/ IMPRESSION: Normal bowel gas pattern. No mechanical bowel obstruction, pneumatosis or free intraperitoneal air No organomegaly or obvious abdominal mass lesion Electronically signed by: Chava Donnelly MD 09/16/2018 11:19 AM [facility]
--- NOTE | 2018-09-16 11:38 | US ---
EXAM DESCRIPTION: Gall Bladder CLINICAL HISTORY: N/V;pain COMPARISON: None Available. TECHNIQUE: Right upper quadrant ultrasound FINDINGS: Pancreas: Visualized portions of the pancreas are unremarkable. Bowel gas obscures some areas. Aorta/inferior vena cava: No aortic aneurysm. Normal inferior vena cava. Liver: The liver is homogeneous in texture with increased echogenicity consistent with diffuse hepatic steatosis. No focal liver lesion or intrahepatic bile duct dilatation. No liver surface irregularity. Normal appearance of the portal vein and hepatic veins. Gallbladder: Gallbladder appears normal with no intraluminal stones or wall thickening. Common bile duct: Normal caliber measuring 4.3 mm. Right kidney: Renal length is 9.8 cm. Normal cortical echogenicity. Cortical thickness is normal. No hydronephrosis is seen. No renal mass or shadowing calculus. IMPRESSION: Hyperechoic liver consistent with diffuse hepatic steatosis. Normal sonographic appearance of the gallbladder and common bile duct. Electronically signed by: Sebas Huddleston MD 09/16/2018 11:37 AM [facility]
[2018-09-16] MEDS ORDERED: INSULIN, REG.(HUMAN) 100 U/ML VIAL SUBCU ONE (12:03)
[2018-09-16] MEDS ORDERED: MAGNESIUM SULFATE PREMIX 2GM 2 GM in PREMIX BAG 1 BAG IVPB ONE (12:03)
[2018-09-16] MEDS ORDERED: MAGNESIUM SULFATE PREMIX 2GM 50 ML IVPB ONE (12:12)
[2018-09-16] MEDS ORDERED: SODIUM CHLORIDE 0.9% 500ML 500 ML IVS ONE (12:50)
[2018-09-16] MEDS ORDERED: fentaNYL CITRATE INJ 50 MCG/ML AMP IV ONE (12:50)
[2018-09-16] MEDS ORDERED: MEROPENEM 500 MG in SODIUM CHL 0.9% 50ML MIN-BAG+ 50 ML IVPB ONE (12:54)
[2018-09-16] MEDS ORDERED: MEROPENEM 500 MG VIAL IVPB ONE (13:05)
[2018-09-16] MEDS ORDERED: SODIUM CHL 0.9% 50ML MIN-BAG+ 50 ML IVPB ONE (13:05)
[2018-09-16] MEDS ORDERED: ONDANSETRON INJ 4 MG/2 ML VIAL IV ONE (13:29)
[2018-09-16 17:17] VITALS: BP 155/79; O2SAT 100
== END 2018-09-16 17:17 | disposition home or self-care (01) ==
LOC: ER 10:09
DX: E11.65 Type 2 diabetes mellitus with hyperglycemia (principal); N39.0 Urinary tract infection, site not specified; R11.2 Nausea with vomiting, unspecified; I10 Essential (primary) hypertension; Z79.899 Other long term (current) drug therapy; Z79.84 Long term (current) use of oral hypoglycemic drugs
CPT/HCPCS: 36415; 36416; 71045; 74019; 76705; 80048; 80076; 81001; 81025; 82550; 82553; 82948; 83690; 84484; 85025; 85610; 85730; 87086; J0780; J2185; J2405; J2765; J3010; J3475; J7040; J7050; J7120